=== PATIENT | female | born 1960 | race Caucasian/White ===

== ENCOUNTER 2016-12-11 04:31 | Emergency (ER) | payer OTHER ==
--- NOTE | 2016-12-11 05:14 | ED NURSING NOTES ---
Clinical Report - Nurses [facility] [address] [place] [address] 12/11/2016 4:32 Patient: CELESTINE CHAN TRIAGE Triage time 0436 AM. Acuity: LEVEL 4. Chief Complaint: "FLU", FEVER, COUGH, SORE THROAT and BODY ACHES and known FLU EXPOSURE. Alert. No acute distress. --04:44 Severiano Lopez R.N. 04:36 12/11/16. BP: 155/90. HR: 95. RR: 16. O2 saturation: 99%. Temp: 98.9 F. --04:44 Severiano Lopez R.N. Weight: 94.3 kg stated. Height/Length: 64 inches Per Patient. BMI: 35.7. --04:43 Severiano Lopez R.N. Medications Aspirin 325 mg, daily (pt has not taken one for 3 weeks). Estrodial. Lorazepam Oral 0.5 mg, as needed (Pt took one today). Wellbutrin Oral 300mg, daily. --04:40 Severiano Lopez R.N. PriLOSEC Oral. --04:40 Severiano Lopez R.N. Zoloft Oral. --04:42 Severiano Lopez R.N. Allergies E-Mycin. Mycins. Sulfa Drugs. Tetracycline. --04:40 Severiano Lopez R.N. History Arrived by private vehicle. Historian: patient. Accompanied by family. Onset was gradual. (Since Saturday). She has had contact with a sick individual. ( Patient presents to the ED with cough, fever, body aches and sore throat since Saturday. Patient states that she was seen by her PCP who prescribed her cough medicine and sent her home. Patient states that her symptoms has not improved. Patient states that she was treated with tamiflu approximately 3 weeks ago because her was diagnosed with flu and she had a dry cough.). She has had chills and fatigue. PAST MEDICAL HX: Immunizations: up-to-date. SOCIAL HX: Former smoker, end date 2003. Occasional alcohol use. History of drug use. (no). FALL RISK ASSESSMENT: Fall risk assessment completed. No fall risk identified. NUTRITIONAL RISK ASSESSMENT: The nutritional risk assessment revealed no deficiencies. FUNCTIONAL ASSESSMENT: Functional assessment: no impairments noted. LEARNING NEEDS ASSESSMENT: The learning needs assessment revealed no barriers. SKIN INTEGRITY ASSESSMENT: Skin integrity risk assessment completed. No skin integrity risk identified. --04:44 Severiano Lopez R.N. Treatment POULTRY TRIMMER: (Nyquil). --04:45 Severiano Lopez R.N. PROBLEMS: Emphysema. Diverticulitis. Sleep Apnea. Hives. Depression. --04:44 Severiano Lopez R.N. ADDITIONAL SURGERIES: Hysterectomy. Tonsillectomy. --04:44 Severiano Lopez R.N. PHYSICAL ASSESSMENT Ambulatory to room. GENERAL / NEURO / PSYCH: Alert. Oriented X 4. Appears in no acute distress. HEENT: Pupils equal, round and reactive to light. Mucous membranes are pink. RESPIRATORY: Mild respiratory distress. Cough. CVS: Normal sinus rhythm noted. Capillary refill less than 2 seconds. Pulses within normal limits. GI / : Abdomen soft and nontender and normal bowel sounds. SKIN: Skin intact. Skin is warm and dry. Normal skin turgor. --05:27 Severiano Lopez R.N. NURSING PROGRESS NOTES 05:27 12/11/2016 Tamiflu PO Capsules 75 mg given. Allergies verified and confirmed 5 rights. --05:27 Sevreiano Lopez R.N. DISPOSITION / DISCHARGE Condition at departure: improved. The goals identified in the patient's plan of care were met. No learning barriers present. Reviewed medication(s) side effects, precautions, dosing and course information. Prescription(s) given to the patient. Reviewed fever care instructions. Reviewed referral to a primary care physician. Reviewed need for increased fluid intake. Patient verbalized understanding. Written instructions provided in Georgian. The patient was discharged home and accompanied by spouse. She left the Emergency Department ambulatory and via private vehicle. Spouse driving. FALL RISK ASSESSMENT: Fall risk assessment completed. No fall risk identified. --05:26 Severiano Lopez R.N. 05:25 12/11/16. BP: 132/73. HR: 88. RR: 16. O2 saturation: 95% on room air. Temp: 98.2 F (oral). Pain level now: 03/06. --05:26 Severiano Lopez R.N. Departure time: 0526 AM. --05:26 Severiano Lopez R.N. Locked/Released at 12/11/2016 5:28 by Severiano Lopez R.N.
--- NOTE | 2016-12-11 05:14 | ED ORDER SUMMARY ---
..... Patient: CELESTINE CHAN OrderSheet [facility] VisitID: [id number] [address] [place] [address] 56y, F Registration Date/Time: 12/11/2016 ORDER SHEET Weight: 94.3 kg (stated) Allergies: E-Mycin, Mycins, Sulfa Drugs, Tetracycline GENERAL ORDERS: Rapid Influenza Screen (Nasal Pharyngeal) (swab) Urgent (04:42 12/11/2016 Radha OGLESBY) (Ack 4:44 LMuller) (5:11 Tai R.N.) Chest 2V Urgent (04:58 12/11/2016 Radha OGLESBY) (Ack 5:07 LMuller) (5:07 Leonardo) MEDICATION ORDERS: - (Tamiflu 75 mg PO x 1) (05:11 12/11/2016 Radha OGLESBY) (5:27 Deyvi R.N.) IV FLUIDS: ORDER SHEET NOTES: [Electronically signed by Severiano Lopez R.N. (05:28 12/11/2016)] [Electronically signed by Anya Costello MD (09:03 12/11/2016)] [Electronically locked/signed by Severiano Lopez R.N. (:12/11/2016)]
--- NOTE | 2016-12-11 05:14 | ED NURSING NOTES ---
Clinical Report - Nurses [facility] [address] [place] [address] 12/11/2016 4:32 Patient: CELESTINE CHAN TRIAGE Triage time 0436 AM. Acuity: LEVEL 4. Chief Complaint: "FLU", FEVER, COUGH, SORE THROAT and BODY ACHES and known FLU EXPOSURE. Alert. No acute distress. --04:44 Severiano Lopez R.N. 04:36 12/11/16. BP: 155/90. HR: 95. RR: 16. O2 saturation: 99%. Temp: 98.9 F. --04:44 Severiano Lopez R.N. Weight: 94.3 kg stated. Height/Length: 64 inches Per Patient. BMI: 35.7. --04:43 Severiano Lopez R.N. Medications Aspirin 325 mg, daily (pt has not taken one for 3 weeks). Estrodial. Lorazepam Oral 0.5 mg, as needed (Pt took one today). Wellbutrin Oral 300mg, daily. --04:40 Severiano Lopez R.N. PriLOSEC Oral. --04:40 Severiano Lopez R.N. Zoloft Oral. --04:42 Severiano Lopez R.N. Allergies E-Mycin. Mycins. Sulfa Drugs. Tetracycline. --04:40 Severiano Lopez R.N. History Arrived by private vehicle. Historian: patient. Accompanied by family. Onset was gradual. (Since Saturday). She has had contact with a sick individual. ( Patient presents to the ED with cough, fever, body aches and sore throat since Saturday. Patient states that she was seen by her PCP who prescribed her cough medicine and sent her home. Patient states that her symptoms has not improved. Patient states that she was treated with tamiflu approximately 3 weeks ago because her was diagnosed with flu and she had a dry cough.). She has had chills and fatigue. PAST MEDICAL HX: Immunizations: up-to-date. SOCIAL HX: Former smoker, end date 2003. Occasional alcohol use. History of drug use. (no). FALL RISK ASSESSMENT: Fall risk assessment completed. No fall risk identified. NUTRITIONAL RISK ASSESSMENT: The nutritional risk assessment revealed no deficiencies. FUNCTIONAL ASSESSMENT: Functional assessment: no impairments noted. LEARNING NEEDS ASSESSMENT: The learning needs assessment revealed no barriers. SKIN INTEGRITY ASSESSMENT: Skin integrity risk assessment completed. No skin integrity risk identified. --04:44 Severiano Lopez R.N. Treatment MEDIA SALES CONSULTANT: (Nyquil). --04:45 Severiano Lopez R.N. PROBLEMS: Emphysema. Diverticulitis. Sleep Apnea. Hives. Depression. --04:44 Severiano Lopez R.N. ADDITIONAL SURGERIES: Hysterectomy. Tonsillectomy. --04:44 Severiano Lopez R.N. PHYSICAL ASSESSMENT Ambulatory to room. GENERAL / NEURO / PSYCH: Alert. Oriented X 4. Appears in no acute distress. HEENT: Pupils equal, round and reactive to light. Mucous membranes are pink. RESPIRATORY: Mild respiratory distress. Cough. CVS: Normal sinus rhythm noted. Capillary refill less than 2 seconds. Pulses within normal limits. GI / : Abdomen soft and nontender and normal bowel sounds. SKIN: Skin intact. Skin is warm and dry. Normal skin turgor. --05:27 Severiano Lopez R.N. NURSING PROGRESS NOTES 05:27 12/11/2016 Tamiflu PO Capsules 75 mg given. Allergies verified and confirmed 5 rights. --05:27 Severiano Lopez R.N. DISPOSITION / DISCHARGE Condition at departure: improved. The goals identified in the patient's plan of care were met. No learning barriers present. Reviewed medication(s) side effects, precautions, dosing and course information. Prescription(s) given to the patient. Reviewed fever care instructions. Reviewed referral to a primary care physician. Reviewed need for increased fluid intake. Patient verbalized understanding. Written instructions provided in Turkmen. The patient was discharged home and accompanied by spouse. She left the Emergency Department ambulatory and via private vehicle. Spouse driving. FALL RISK ASSESSMENT: Fall risk assessment completed. No fall risk identified. --05:26 Severiano Lopez R.N. 05:25 12/11/16. BP: 132/73. HR: 88. RR: 16. O2 saturation: 95% on room air. Temp: 98.2 F (oral). Pain level now: 03/06. --05:26 Severiano Lopez R.N. Departure time: 0526 AM. --05:26 Severiano Lopez R.N. Locked/Released at 12/11/2016 5:28 by Severiano Lopez R.N.
--- NOTE | 2016-12-11 05:14 | ED CLINICAL REPORT ---
Clinical Report - Physicians/Mid Levels [facility] [address] [place] [address] 12/11/2016 4:32 Patient: CELESTINE CHAN Time Seen: 04:41. Arrived- By private vehicle. Historian- patient. HISTORY OF PRESENT ILLNESS Chief Complaint: COUGH, SORE THROAT, FEVER, CHILLS, MUSCLE ACHES and "FLU". This started several days ago and is still present. The illness is described as moderate. The patient has had a cough, a sore throat, nasal congestion, fever and chills. She has had muscle aches. No sputum production, difficulty breathing, chest discomfort or pain or hoarseness. No sinus pressure, sinus drainage or ear pain. Additional history - The patient has had contact with a sick individual. ( was dx with the flu 3 weeks ago, and pt was minimally symptomatic at that time, but was given Tamiflu.). Similar symptoms previously: None. Recent medical care: The patient was seen recently at another facility in a clinic. ( Pt was seen by her Dr. at onset of current sx, and given cough medicine, which she states is not helping.). REVIEW OF SYSTEMS No headache, eye discomfort, nausea, vomiting or diarrhea. No abdominal pain, hay fever, pedal edema, calf pain or difficulty with urination. No skin rash, enlarged lymph nodes or joint pain. All systems otherwise negative, except as recorded above. PAST HISTORY Problems: Emphysema. Diverticulitis. Sleep Apnea. Depression. Additional Surgeries: Hysterectomy. Tonsillectomy. Medications: Zoloft Oral. PriLOSEC Oral. Aspirin 325 mg, daily (pt has not taken one for 3 weeks). Estrodial. Lorazepam Oral 0.5 mg, as needed (Pt took one today). Wellbutrin Oral 300mg, daily. Allergies: E-Mycin. Mycins. Sulfa Drugs. Tetracycline. SOCIAL HISTORY Former smoker. Occasional alcohol use. No drug use. ADDITIONAL NOTES The nursing notes have been reviewed. PHYSICAL EXAM Vital Signs: 12/11/2016 04:36 BP: 155/90. HR: 95. RR: 16. O2 saturation: 99%. Temp: 98.9 F. Have been reviewed. Appearance: Alert. No acute distress. Eyes: Pupils equal, round and reactive to light. Eyes normal inspection. ENT: Nose normal. Pharynx normal. Uvula midline. Neck: Normal inspection. Neck supple. CVS: Normal heart rate and rhythm. Heart sounds normal. Pulses normal. Respiratory: No respiratory distress. Breath sounds normal. Abdomen: Soft and nontender. Back: Normal inspection. No CVA tenderness. Skin: Skin warm and dry. Normal skin color. No rash. Normal skin turgor. Extremities: Extremities exhibit normal ROM. No lower extremity edema. Neuro: Oriented X 3. No motor deficit. No sensory deficit. LABS, X-RAYS, AND EKG Chest X-ray: No acute disease. Normal lung markings present. Normal heart size. Mediastinum normal. Great vessels normal. Soft tissues normal. No infiltrate. No fracture. No bony lesion present. Views: PA and lateral. Technique: good. The X-rays were independently viewed by me and interpreted contemporaneously by me. Prior films were not available for comparison. Laboratory Tests: Rapid Influenza Screen: (SHABNAM: 12/11/2016 04:38) ( MsgRcvd 12/11/2016 05:06) Final results SPECIMEN DESCRIPTION: SWAB Test Result Flag Units (Reference) RAPID INFLUENZA SCREEN CALLED TO: MARIOLA -- DATE: 12/11/16 INFLUENZA A: POSITIVE SCREEN FOR INFLUENZA A INFLUENZA B: NEGATIVE SCREEN FOR INFLUENZA B . Pulse Oximetry: 12/11/2016 04:36 O2 saturation: 99%. (FIO2 - room air). Interpretation: normal. PROGRESS AND PROCEDURES Course of Care: Pt was worked up for her sx with a CXR (neg) and influenza (A +). She was treated with Tamiflu. Patient and spouse counseled in person regarding the patient's stable condition, test results, diagnosis and need for follow-up. Concerns were addressed. Old medical records reviewed. Disposition: Discharged. Condition: stable. CLINICAL IMPRESSION Influenza type A with rhinitis and pharyngitis. INSTRUCTIONS Do not work (until 12/17/16). Drink plenty of fluids. Warnings: GENERAL WARNINGS: Return or contact your physician immediately if your condition worsens or changes unexpectedly, if not improving as expected, or if other problems arise. Your Current Medications: CONTINUE TAKING THE FOLLOWING MEDICATIONS: Aspirin : 325 mg daily, pt has not taken one for 3 weeks. Estrodial*. Lorazepam Oral : 0.5 mg, prn, Pt took one today. PriLOSEC Oral. Wellbutrin Oral : 300mg daily. Zoloft Oral. Prescription Medications: Robitussin A-C cough syrup take two (2) teaspoons orally every 6 hours as needed for cough. Dispense one hundred twenty (120) mL. One refill. Substitution is permissible. Tamiflu 75 mg: take 1 capsule orally every 12 hours for 5 days. No refill. Substitution is permissible. Follow-up: Follow up with your doctor as needed. Understanding of the discharge instructions verbalized by patient. (Electronically signed by Anya Costello MD 12/11/2016 9:03)
--- NOTE | 2016-12-11 05:14 | ED ORDER SUMMARY ---
..... Patient: CELESTINE CHAN OrderSheet [facility] VisitID: [id number] [address] [place] [address] 56y, F Registration Date/Time: 12/11/2016 ORDER SHEET Weight: 94.3 kg (stated) Allergies: E-Mycin, Mycins, Sulfa Drugs, Tetracycline GENERAL ORDERS: Rapid Influenza Screen (Nasal Pharyngeal) (swab) Urgent (04:42 12/11/2016 Radha OGLESBY) (Ack 4:44 LMuller) (5:11 Tai R.N.) Chest 2V Urgent (04:58 12/11/2016 Rdaha OGLESBY) (Ack 5:07 LMuller) (5:07 Leonardo) MEDICATION ORDERS: - (Tamiflu 75 mg PO x 1) (05:11 12/11/2016 Radha OGLESBY) (5:27 Deyvi R.N.) IV FLUIDS: ORDER SHEET NOTES: [Electronically signed by Severiano Lopez R.N. (05:28 12/11/2016)] [Electronically signed by Anya Costello MD (09:03 12/11/2016)] [Electronically locked/signed by Severiano Lopez R.N. (:12/11/2016)]
--- NOTE | 2016-12-11 07:11 | DIAGNOSTIC IMAGING REPORT ---
PROCEDURE: XR CHEST 2 VIEW INDICATION: FEVER TECHNIQUE: PA and lateral views. COMPARISON: Compared to chest x-ray and 04/09/2010. FINDINGS: Lungs are clear. Heart and mediastinum are normal. Thorax is normal. IMPRESSION: 1. Negative chest.
--- NOTE | 2016-12-11 09:03 | ED MED RECONCILIATION SUMMARY ---
Patient: CELESTINE CHAN Medication Reconciliation Report [facility] VisitID: [id number] [address] [place] [address] 56y, F Registration Date/Time: 12/11/2016 Weight: 94.3 kg Height/Length: 64 in. BMI: 35.7 ALLERGIES: E-Mycin, Mycins, Sulfa Drugs, Tetracycline The patient's Home Medications are listed below: CONTINUE TAKING THE FOLLOWING MEDICATIONS: Aspirin 325 mg, daily, pt has not taken one for 3 weeks Estrodial Lorazepam Oral 0.5 mg, Pt took one today PriLOSEC Oral Wellbutrin Oral 300mg, daily Zoloft Oral The source(s) of the original Home Medication information: Not obtained. The following Medications were given to the patient in the Emergency Department: Tamiflu [PO] PO 75 mg, administered: 12/11/2016 5:27:00 AM The following Medications were prescribed to the patient: Robitussin A-C cough syrup take two (2) teaspoons orally every 6 hours as needed for cough. Dispense one hundred twenty (120) mL. One refill. Substitution is permissible. -- Anya Costello MD Tamiflu 75 mg: take 1 capsule orally every 12 hours for 5 days. No refill. Substitution is permissible. -- Anya Costello MD
--- NOTE | 2016-12-11 09:03 | ED MAR SUMMARY ---
..... Medication Administration Record [facility] [address] [place] [address] Patient: CELESTINE CHAN Visit ID: [id number] 56y, F Weight: 94.3 kg Height/Length: 64 in BMI: 35.7 ALLERGIES: E-Mycin, Mycins, Sulfa Drugs, Tetracycline Given 05:27 12/11/2016 Severiano Lopez RNoel Medication Administered: TAMIFLU [PO], Dose: 75 mg Capsules PO. Medication Ordered: - (Tamiflu 75 mg PO x 1).
--- NOTE | 2016-12-11 09:03 | ED MAR SUMMARY ---
..... Medication Administration Record [facility] [address] [place] [address] Patient: CELESTINE CHAN Visit ID: [id number] 56y, F Weight: 94.3 kg Height/Length: 64 in BMI: 35.7 ALLERGIES: E-Mycin, Mycins, Sulfa Drugs, Tetracycline Given 05:27 12/11/2016 Severiano Lopez RNoel Medication Administered: TAMIFLU [PO], Dose: 75 mg Capsules PO. Medication Ordered: - (Tamiflu 75 mg PO x 1).
--- NOTE | 2016-12-11 09:03 | ED MED RECONCILIATION SUMMARY ---
Patient: CELESTINE CHAN Medication Reconciliation Report [facility] VisitID: [id number] [address] [place] [address] 56y, F Registration Date/Time: 12/11/2016 Weight: 94.3 kg Height/Length: 64 in. BMI: 35.7 ALLERGIES: E-Mycin, Mycins, Sulfa Drugs, Tetracycline The patient's Home Medications are listed below: CONTINUE TAKING THE FOLLOWING MEDICATIONS: Aspirin 325 mg, daily, pt has not taken one for 3 weeks Estrodial Lorazepam Oral 0.5 mg, Pt took one today PriLOSEC Oral Wellbutrin Oral 300mg, daily Zoloft Oral The source(s) of the original Home Medication information: Not obtained. The following Medications were given to the patient in the Emergency Department: Tamiflu [PO] PO 75 mg, administered: 12/11/2016 5:27:00 AM The following Medications were prescribed to the patient: Robitussin A-C cough syrup take two (2) teaspoons orally every 6 hours as needed for cough. Dispense one hundred twenty (120) mL. One refill. Substitution is permissible. -- Anya Costello MD Tamiflu 75 mg: take 1 capsule orally every 12 hours for 5 days. No refill. Substitution is permissible. -- Anya Costello MD
--- NOTE | 2016-12-11 09:03 | ED DISCHARGE INSTRUCTIONS ---
Patient: CELESTINE CHAN General Instructions [facility] VisitID: [id number] [place] [address] 56y, F Registration Date/Time: 12/11/2016 Influenza type A with rhinitis and pharyngitis. INSTRUCTIONS Do not work (until 12/17/16). Drink plenty of fluids. Warnings: GENERAL WARNINGS: Return or contact your physician immediately if your condition worsens or changes unexpectedly, if not improving as expected, or if other problems arise. Your Current Medications: CONTINUE TAKING THE FOLLOWING MEDICATIONS: Aspirin : 325 mg daily, pt has not taken one for 3 weeks. Estrodial*. Lorazepam Oral : 0.5 mg, prn, Pt took one today. PriLOSEC Oral. Wellbutrin Oral : 300mg daily. Zoloft Oral. Prescription Medications: Robitussin A-C cough syrup take two (2) teaspoons orally every 6 hours as needed for cough. Dispense one hundred twenty (120) mL. One refill. Substitution is permissible. Tamiflu 75 mg: take 1 capsule orally every 12 hours for 5 days. No refill. Substitution is permissible. Follow-up: Follow up with your doctor as needed. Understanding of the discharge instructions verbalized by patient. ADDITIONAL INFORMATION Influenza (Adult) Influenza, also called the flu, is a viral illness that affects the air passages of the lungs. It differs from the common cold. It is highly contagious. It may be spread through the air by coughing and sneezing or by direct contact (touching the sick person and then touching your own eyes, nose or mouth). Illness starts 1-3 days after exposure and lasts for 1-2 weeks. Antibiotics are usually not needed unless a complication appears (ear or sinus infection or pneumonia). Symptoms may be mild or severe and can include extreme tiredness (wanting to stay in bed all day), chills, fevers, muscle aching, soreness with eye movement, headache, and a dry, hacking cough. Home Care: Avoid exposure to cigarette smoke (yours or others). Tylenol or ibuprofen (Advil) will help fever, muscle aching, and headache. To avoid risk of liver injury, aspirin should not be used in children and teenagers under 18 with this illness. Nausea and loss of appetite are common. A light diet is recommended. Avoid dehydration by drinking 6-8 glasses of fluids per day (water, sport drinks like Gatorade, soft drinks without caffeine, juices, tea, soup, etc.). Extra fluids will also help loosen secretions in the nose and lungs. Ituj-hoh-gxqbovb cold medicines will not shorten the duration of the illness but may be helpful for the following symptoms: cough (Robitussin DM); sore throat (Chloraseptic lozenges or spray); nasal and sinus congestion (Actifed or Sudafed). [NOTE: Do not use decongestants if you have high blood pressure.] Stay home until your fever has been gone for at least 24 hours (without the use of fever-reducing medications such as ibuprofen). Follow Up with your doctor or as directed by our staff if you are not improving over the next week. Note: If you are age 65 or older, or if you have chronic asthma or COPD, we recommend a pneumococcal vaccinationevery five years. All adults shouldreceive a yearly influenza vaccination every . Ask your doctor about this. Get Prompt Medical Attention if any of the following occur: Cough with lots of colored sputum (mucus) or blood in your sputum Chest pain, shortness of breath, wheezing, or difficulty breathing Severe headache, face, neck or ear pain New rash Fever of 100.4F (38C) oral or higher, not better with fever medication Confusion, behavior change or seizure Severe weakness or dizziness You have been given the following additional information: Influenza (Adult) Do not work (until 12/17/16). (Electronically signed by Anya Costello MD 12/11/2016 9:03)
== END 2016-12-11 05:29 | disposition home or self-care (01) ==
LOC: ED SRH 04:31
DX: J10.1 Influenza due to other identified influenza virus with other respiratory manifestations (principal); Z79.899 Other long term (current) drug therapy; Z88.0 Allergy status to penicillin; Z88.1 Allergy status to other antibiotic agents; Z88.2 Allergy status to sulfonamides; Z87.891 Personal history of nicotine dependence
CPT/HCPCS: 91400